=== PATIENT | male | born 1995 | race Caucasian/White ===

== ENCOUNTER 2018-12-03 06:39 | Emergency (ER) | payer SELFPAY ==
[2018-12-03] MEDS ORDERED: Morphine 4 MG/ML VIAL ONE (08:30)
[2018-12-03] MEDS ORDERED: Ondansetron PF 4 MG/2 ML Vial ONE (08:30)
--- NOTE | 2018-12-03 09:25 | RAD ---
TWO VIEWS RIGHT SHOULDER: Comparison: None. History: Right shoulder dislocation. FINDINGS: Two views of the right shoulder shows anterior/inferior dislocation of the glenohumeral joint. No fra cture is seen. IMPRESSION: Right shoulder dislocation. POS: [facility]
[2018-12-03] MEDS ORDERED: KETAMINE 100 MG/ML (5ML VIAL) ONE (09:32)
--- NOTE | 2018-12-03 11:21 | RAD ---
RIGHT SHOULDER 3 VIEWS: Date: 12/03/18 HISTORY: Post reduction. COMPARISON: Radiograph dated 12/03/18. FINDINGS: Satisfactory post reduction appearance of the right glenohumeral joint. Likely Hill-Sachs deformity posterior superior humeral head. IMPRESSION: Satisfactory post reduction appearance. POS: [facility]
== END 2018-12-03 11:00 | disposition home or self-care (01) ==
LOC: ERS 06:39
DX: S43.014A Anterior dislocation of right humerus, initial encounter (principal); X58.XXXA Exposure to other specified factors, initial encounter
CPT/HCPCS: 23650; 96374; 96375; 99156; 99157; J2270; J2405

== ENCOUNTER 2019-01-13 14:28 | Emergency (ER) | payer SELFPAY ==
[2019-01-13] MEDS ORDERED: Morphine 4 MG/ML VIAL ONE (15:04)
--- NOTE | 2019-01-13 15:11 | RAD ---
FRadiograph right shoulder 3 views: 01/13/2019 2:57 PM HISTORY: 23-year-old male with right shoulder deformity FINDINGS: There is anterior dislocation of the humeral head relative to the glenoid. No acute fracture is ident ified. IMPRESSION: Recurrent right anterior shoulder dislocation.
[2019-01-13] MEDS ORDERED: Ondansetron PF 4 MG/2 ML Vial ONE (16:34)
[2019-01-13] MEDS ORDERED: Propofol 1,000 MG/100 ML VIAL IV ONE (16:40)
[2019-01-13] MEDS ORDERED: Propofol 500 MG/50 ML VIAL ONE (16:40)
--- NOTE | 2019-01-13 17:19 | RAD ---
FRadiograph right shoulder 2 views: 01/13/2019 5:02 PM HISTORY: Status post anterior shoulder dislocation, status post second reduction attempt. COMPARISON: 01/13/2019 4:56 PM FINDINGS: Now, the glenohumeral joint is relocated. There is a Hill-Sachs defect at the lateral aspect of the h umeral head. IMPRESSION: Successful reduction of acute anterior glenohumeral joint right shoulder dislocation.
--- NOTE | 2019-01-13 17:21 | RAD ---
FRadiograph right shoulder one view: 01/13/2019 4:56 PM HISTORY: 23-year-old male status post acute right shoulder dislocation. COMPARISON: 01/13/2019 2:57 PM FINDINGS: Single AP view shows no interval change in the anterior dislocation of the humeral head relative to t he glenoid. IMPRESSION: Unsuccessful first attempt at reducing the anterior shoulder dislocation.
== END 2019-01-13 18:18 | disposition home or self-care (01) ==
LOC: ERS 14:28
DX: S43.014A Anterior dislocation of right humerus, initial encounter (principal); X50.1XXA Overexertion from prolonged static or awkward postures, initial encounter
CPT/HCPCS: 23650; 96361; 96372; 96374; 99152; J2270; J2405; J2704

== ENCOUNTER 2019-10-04 18:11 | Emergency (ER) | payer SELFPAY ==
--- NOTE | 2019-10-04 18:53 | RAD ---
RIGHT SHOULDER THREE VIEWS: Comparison: 01-13-19 FINDINGS: There is anterior right shoulder dislocation again noted. No fracture. AC joint normally aligned. IMPRESSION: Anterior shoulder dislocation. POS: OFF
[2019-10-04] MEDS ORDERED: Fentanyl 100 MCG/2 ML VIAL ONE ×2 (21:45→22:21)
[2019-10-04] MEDS ORDERED: Diazepam 5 MG TAB ONE (21:45)
--- NOTE | 2019-10-04 22:51 | RAD ---
Right shoulder: 2 views INDICATION:Postreduction FINDINGS: Humeral head has been reduced and now appears normally positioned over the glenoid. No evidence of fr acture. No soft tissue abnormality. IMPRESSION: Shoulder dislocation has been reduced
== END 2019-10-04 23:05 | disposition home or self-care (01) ==
LOC: ERS 18:11
DX: S43.004A Unspecified dislocation of right shoulder joint, initial encounter (principal); X58.XXXA Exposure to other specified factors, initial encounter
CPT/HCPCS: 23650; 96361; 96374; J3010

== ENCOUNTER 2020-02-09 04:49 | Emergency (ER) | payer SELFPAY ==
[2020-02-09] MEDS ORDERED: Ondansetron PF 4 MG/2 ML Vial ONE ×2 (05:13→05:16)
[2020-02-09] MEDS ORDERED: Lidocaine 1% (PF) 30 ML VIAL ONE (05:24)
[2020-02-09] MEDS ORDERED: Triple Antibiotic Oint 1 GM Packet ONE (05:53)
--- NOTE | 2020-02-09 09:05 | CT ---
PRELIMINARY REPORT/[facility]/EMERGENCY AFTER HOURS PROCEDURE: PROCEDURE: CT Head without Contrast . HISTORY: Trauma. TECHNIQUE: Axial images were performed without the administration of IV contrast with or without mult iplanar reformations . COMPARISON: 01/01/2017. FINDINGS: Brain shows no mass, hemorrhage, or acute stroke. Ventricles are normal size for patient's age. No acute skull or scalp abnormality. Mild mucosal thickening RIGHT sphenoidal sinus. Clear mastoids. IMPRESSION: Normal CT scan of the brain. ELECTRONICALLY SIGNED BY: Son Frazier MD Feb 09, 2020 5:53:32 AM CDT This report is intended for review by the ordering physician only, in accordance of law. If you recei ve this report in error, please call [facility] at [phone]. FINAL REPORT BRAIN CT WITHOUT IV CONTRAST: EMERGENT AFTER HOURS EXAM TIME: 5:25 AM. DATE: 02/09/2020. FINDINGS/IMPRESSION: Mild sphenoid sinus mucosal disease. No mass or bleed or other acute process. This report is in agreement with the preliminary report.
--- NOTE | 2020-02-09 09:07 | CT ---
PRELIMINARY REPORT/[facility]/EMERGENCY AFTER HOURS PROCEDURE: PROCEDURE: CT scan Cervical Spine without contrast. HISTORY: Altered mental status and fall. TECHNIQUE: Axial images were performed without IV contrast with multiplanar reconstructions . COMPARISON: None . FINDINGS: No acute fracture or displacement. No disc space narrowing or spur formation. Facets show normal alignment and spinous processes are unremarkable. Normal odontoid. No paraspinal soft tissue abnormality. IMPRESSION: Normal CT scan of the cervical spine . ELECTRONICALLY SIGNED BY: Son Frazier MD Feb 09, 2020 6:05:03 AM CDT This report is intended for review by the ordering physician only, in accordance of law. If you recei ve this report in error, please call [facility] at [phone]. FINAL REPORT CERVICAL SPINE CT SCAN WITHOUT IV CONTRAST: EMERGENT AFTER HOURS EXAM TIME: 5:28 AM. DATE: 02/09/2020. No fracture, dislocation, or other acute process. This report is in agreement with the preliminary report.
== END 2020-02-09 06:11 | disposition home or self-care (01) ==
LOC: ERS 04:49
DX: S01.111A Laceration without foreign body of right eyelid and periocular area, initial encounter (principal); S09.90XA Unspecified injury of head, initial encounter; F10.129 Alcohol abuse with intoxication, unspecified; W22.8XXA Striking against or struck by other objects, initial encounter; Y93.72 Activity, wrestling
CPT/HCPCS: 12013; 70450; 72125; 96361; 96374; J2001; J2405

== ENCOUNTER 2020-03-04 07:38 | Emergency (ER) | payer SELFPAY ==
--- NOTE | 2020-03-04 08:31 | RAD ---
Exam: XR Shoulder Rt 3 View STANDARD HISTORY: Right shoulder pain. Patient scheduled for future surgery. COMPARISON: 02/02/2020 FINDINGS: The right humeral head is dislocated inferiorly and medially with respect to the glenoid. No obvious fracture is appreciated on this exam. The acromioclavicular joint is within normal limits. No other findings. IMPRESSION: Right anterior shoulder dislocation.
[2020-03-04] MEDS ORDERED: Morphine 4 MG/ML VIAL ONE (08:50)
[2020-03-04] MEDS ORDERED: Midazolam HCl 5 mg/ml Vial ONE (09:09)
[2020-03-04] MEDS ORDERED: Lidocaine 1% w/Epinephrine 1:100K 20 ML VIAL ONE (09:46)
[2020-03-04] MEDS ORDERED: Lidocaine 1% (PF) 30 ML VIAL ONE (09:46)
[2020-03-04] MEDS ORDERED: PROPOFOL 20 ML ONE (09:55)
--- NOTE | 2020-03-04 10:34 | RAD ---
Radiograph right shoulder 2 views: DATE: 03/04/2020 Time: 9:40 AM HISTORY: 24-year-old male with acute, traumatic shoulder dislocation COMPARISON: 03/04/2020 8:23 AM FINDINGS: The glenohumeral joint is now located. There is no fracture. IMPRESSION: Successful reduction of the anterior glenohumeral joint dislocation of right shoulder.
--- NOTE | 2020-03-04 11:08 | CON ---
DATE OF CONSULTATION: 03/04/2020 REQUESTING PHYSICIAN: Sly Morrow DO CONSULTING PHYSICIAN: Tai Sandoval MD REASON FOR CONSULTATION: Refractory right shoulder chronic recurring dislocation. BRIEF CLINICAL HISTORY: Grupo is a 24-year-old male, who woke up this morning with right shoulder dislocation. He before and he has had multiple reductions performed. Today, Dr. Morrow attempted a couple of closed reductions and was unable to unlock the patient's Hill-Sachs deformity. Therefore, he called us for brief consultation prior to his third attempt. PAST MEDICAL HISTORY: Negative. PAST SURGICAL HISTORY: Negative. MEDICATIONS: None. ALLERGIES: NO KNOWN DRUG ALLERGIES. DENIES ANY CONTACT ALLERGIES. SOCIAL HISTORY: He is an employed single male. He lives here locally. PHYSICAL EXAMINATION: Visual inspection of right upper extremity demonstrates him to have sulcus sign. The right shoulder is tender to palpation. He cannot abduct or forward flex actively, and attempts at passive motion are uncomfortable. Therefore, he is not further examined due to known underlying glenohumeral dislocation made on radiograph. IMAGING STUDIES: Two-view right shoulder demonstrates anterior-inferior glenohumeral dislocation. PLAN: 1. After further discussion, techniques and positioning, Dr. Morrow was able to perform a third reduction, which was successful with good clunk and post radiographic evidence demonstrated good reduction. 2. No further intervention. The patient can follow up with Dr. Sandoval as an outpatient for further discussions about his multi-directional instability. Job ID: [id number]
== END 2020-03-04 11:20 | disposition home or self-care (01) ==
LOC: ERS 07:38
DX: M24.411 Recurrent dislocation, right shoulder (principal)
CPT/HCPCS: 23650; 99156; J2001; J2250; J2270; J2704

== ENCOUNTER 2020-10-02 08:11 | Emergency (ER) | payer OTHER, SELFPAY ==
--- NOTE | 2020-10-02 09:05 | RAD ---
XR Shoulder Rt 2 View History: Dislocation Comparison: Radiograph August 30, 2020 Findings: Anterior subcoracoid right shoulder dislocation. Ribs are intact. Acromioclavicular alignme nt is normal. Impression: Anterior subcoracoid right shoulder dislocation.
[2020-10-02] MEDS ORDERED: PROPOFOL 20 ML ONE ×2 (09:59→10:36)
--- NOTE | 2020-10-02 11:16 | RAD ---
XR Shoulder Rt 2 View History: Shoulder dislocation Comparison: Radiograph same day Findings: Satisfactory right glenohumeral alignment. Partial Sachs deformity. Impression: Satisfactory glenohumeral ligament.
== END 2020-10-02 11:54 | disposition home or self-care (01) ==
LOC: ERS 08:11
DX: S43.014A Anterior dislocation of right humerus, initial encounter (principal)
CPT/HCPCS: 23650; 96374; 99152; J2704

== ENCOUNTER 2021-01-17 00:15 | Emergency (ER) | payer SELFPAY ==
[2021-01-17] MEDS ORDERED: Lidocaine 4% Topical Sol 50 ML BOT ONE (01:53)
[2021-01-17] MEDS ORDERED: Lidocaine 2% PF 5 ML VIAL ONE ×2 (01:53→01:57)
[2021-01-17] MEDS ORDERED: Fentanyl 100 MCG/2 ML VIAL ONE (01:59)
== END 2021-01-17 02:47 | disposition home or self-care (01) ==
LOC: ERS 00:15
DX: S43.004A Unspecified dislocation of right shoulder joint, initial encounter (principal)
CPT/HCPCS: 23650; J2001; J3010

== ENCOUNTER 2021-01-30 21:12 | Emergency (ER) | payer SELFPAY ==
[2021-01-30] MEDS ORDERED: Midazolam HCl 2 mg/2 ml Vial ONE (22:52)
[2021-01-30] MEDS ORDERED: Morphine 4 MG/ML VIAL ONE ×2 (23:06→23:09)
[2021-01-30] MEDS ORDERED: Ketamine 50 MG/ML (10ML VIAL) ONE (23:19)
== END 2021-01-31 00:32 | disposition home or self-care (01) ==
LOC: ERS 21:12
DX: M24.411 Recurrent dislocation, right shoulder (principal)
CPT/HCPCS: 23650; 96374; 99156; 99157; J2250; J2270

== ENCOUNTER 2021-03-17 01:50 | Emergency (ER) | payer SELFPAY ==
[2021-03-17] MEDS ORDERED: Fentanyl 100 MCG/2 ML VIAL ONE (02:22)
[2021-03-17] MEDS ORDERED: PROPOFOL 20 ML ONE (02:46)
== END 2021-03-17 04:00 | disposition home or self-care (01) ==
LOC: ERS 01:50
DX: S43.014A Anterior dislocation of right humerus, initial encounter (principal); Y04.8XXA Assault by other bodily force, initial encounter
CPT/HCPCS: 23650; 96374; 96375; J2704; J3010

== ENCOUNTER 2021-03-25 03:20 | Emergency (ER) | payer SELFPAY ==
[2021-03-25] MEDS ORDERED: Morphine 4 MG/ML VIAL ONE (04:35)
[2021-03-25] MEDS ORDERED: Ondansetron PF 4 MG/2 ML Vial ONE (04:35)
[2021-03-25 04:44] LABS: #Basophils 0.1 thou/uL (0.0-0.2); #Lymphocytes 2.7 thou/uL (1.20-3.40); #Monocytes 0.7 thou/uL (0.11-0.59); #Neutrophils 6.1 thou/uL (1.40-6.50); %Eosinophils 0.4 % (0.0-10.0); %Lymphocytes 28.3 % (21.0-51.0); %Monocytes 7.1 % (0.0-10.0); %Neutrophils 63.3 % (42.0-75.0); Hemoglobin 15.7 g/dL (14.0-18.0); Mean Corpuscular HGB CONC 35.2 g/dL (32.0-36.0); Mean Platelet Volume 7.7 fL (7.4-10.4); Platelet Count 337 thou/uL (130-400); Red Blood Cell (RBC) Count 4.92 mill/uL (4.70-6.10); White Blood Cell (WBC) Count 9.6 thou/uL (4.8-10.8)
[2021-03-25 04:54] LABS: Bilirubin Negative (Negative); Blood, Urine Negative (Negative); Glucose, Urine (Dipstick) Negative (Negative); Ketone, Urine Negative (Negative); Leukocyte Negative (Negative); Nitrite Negative (Negative); Protein, Urine (Dipstick) Negative (Neg-Trace); Urobilinogen 0.2 mg/dL (Less than 2)
[2021-03-25 04:56] LABS: Clarity Cloudy (Clear)
[2021-03-25 04:57] LABS: Specific Gravity, Urine 1.022 (1.002-1.036)
[2021-03-25 05:23] LABS: ALT (SGPT) 101 U/L (8-55); AST (SGOT) 62 U/L (5-34); Albumin 4.2 g/dL (3.5-5.0); Alkaline Phosphatase 62 U/L (40-110); Anion Gap 15 mmol/L (10-20); BUN (Urea Nitrogen) 6 mg/dL (8.9-20.6); Bilirubin, Total 0.6 mg/dL (0.2-1.2); Calc. Creatinine Clearance 0 mL/min (70-130); Calcium 8.9 mg/dL (7.8-10.44); Carbon Dioxide 22 mmol/L (22-29); Chloride 105 mmol/L (98-107); Globulin 3.1 g/dL (2.4-3.5); Glucose 105 mg/dL (70-105); Lipase 16 U/L (8-78); Potassium 3.8 mmol/L (3.5-5.1); Protein, Total 7.3 g/dL (6.0-8.3); Sodium 138 mmol/L (136-145)
== END 2021-03-25 06:18 | disposition home or self-care (01) ==
LOC: ERS 03:20
DX: K63.89 Other specified diseases of intestine (principal)
CPT/HCPCS: 74177; 80053; 81003; 83690; 85025; 96374; 96375; J2270; J2405

== ENCOUNTER 2021-04-04 21:58 | Emergency (ER) | payer SELFPAY ==
[2021-04-04] MEDS ORDERED: Lidocaine 1% (PF) 30 ML VIAL ONE (22:47)
[2021-04-04] MEDS ORDERED: Ketamine 50 MG/ML (10ML VIAL) ONE (23:26)
== END 2021-04-05 01:05 | disposition home or self-care (01) ==
LOC: ERS 21:58
DX: S43.004A Unspecified dislocation of right shoulder joint, initial encounter (principal); X58.XXXA Exposure to other specified factors, initial encounter
CPT/HCPCS: 23650; 96374; 99152; J2001

== ENCOUNTER 2021-05-21 13:58 | Emergency (ER) | payer SELFPAY ==
[2021-05-21] MEDS ORDERED: Lidocaine 1% (PF) 30 ML VIAL ONE (17:05)
[2021-05-21] MEDS ORDERED: Fentanyl 100 MCG/2 ML VIAL ONE ×3 (17:18→18:04)
[2021-05-21] MEDS ORDERED: Midazolam HCl 5 mg/ml Vial ONE ×3 (17:24→18:02)
== END 2021-05-21 20:07 | disposition home or self-care (01) ==
LOC: ERS 13:58
DX: S43.004A Unspecified dislocation of right shoulder joint, initial encounter (principal); W06.XXXA Fall from bed, initial encounter
CPT/HCPCS: 23650; 96374; 96375; 96376; 99152; 99153; J2001; J2250; J3010

== ENCOUNTER 2021-08-02 07:57 | Emergency (ER) | payer SELFPAY ==
[2021-08-02] MEDS ORDERED: PROPOFOL 20 ML ONE (09:20)
== END 2021-08-02 12:14 | disposition home or self-care (01) ==
LOC: ERS 07:57
DX: S43.004A Unspecified dislocation of right shoulder joint, initial encounter (principal); W07.XXXA Fall from chair, initial encounter
CPT/HCPCS: 23650; 99156; J2704

== ENCOUNTER 2021-11-15 12:25 | Emergency (ER) | payer SELFPAY ==
[2021-11-15] MEDS ORDERED: Midazolam HCl 2 mg/2 ml Vial ONE ×2 (14:31→14:57)
[2021-11-15] MEDS ORDERED: Fentanyl 100 MCG/2 ML VIAL ONE (14:31)
[2021-11-15] MEDS ORDERED: Propofol 500 MG/50 ML VIAL ONE (16:38)
== END 2021-11-15 17:30 | disposition home or self-care (01) ==
LOC: ERS 12:25
DX: S43.004A Unspecified dislocation of right shoulder joint, initial encounter (principal)
CPT/HCPCS: 23650; J2250; J2704; J3010

== ENCOUNTER 2022-02-15 20:23 | Emergency (ER) | payer SELFPAY | END 2022-02-15 21:30 | disposition home or self-care (01) | LOC: ERS 20:23 | DX: J11.1 Influenza due to unidentified influenza virus with other respiratory manifestations (principal) | CPT/HCPCS: 99283 ==

== ENCOUNTER 2023-03-31 09:25 | Emergency (ER) | payer OTHER, SELFPAY ==
[2023-03-31] MEDS ORDERED: PROPOFOL 20 ML ONE (12:34)
== END 2023-03-31 14:31 | disposition home or self-care (01) ==
LOC: ERS 09:25
DX: S43.014A Anterior dislocation of right humerus, initial encounter (principal); X50.0XXA Overexertion from strenuous movement or load, initial encounter
CPT/HCPCS: 23650; 99152; 99153; J2704

== ENCOUNTER 2025-04-21 16:53 | Emergency (ER) | payer SELFPAY | END 2025-04-21 18:10 | disposition home or self-care (01) | LOC: ERS 16:53 | DX: M24.411 Recurrent dislocation, right shoulder (principal); X58.XXXA Exposure to other specified factors, initial encounter | CPT/HCPCS: 23650 ==